=== PATIENT | male | born 1985 | race Caucasian/White ===

== ENCOUNTER → 2018-07-05 | Outpatient (CLI) | payer BC ==
--- NOTE | 2018-07-05 23:53 | CT ---
EXAMINATION TYPE: CT abdomen pelvis wo con DATE OF EXAM: 07/05/2018 HISTORY: c/o right flank pain X [address] DLP: 1148 mGycm. Automated Exposure Control for Dose Reduction was Utilized. TECHNIQUE: CT scan of the abdomen and pelvis is performed without oral or IV contrast. COMPARISON: CT abdomen and pelvis November 15, 2009. FINDINGS: Within the limitations of a non-contrast study, the following observations are made. LUNG BASES: No significant abnormality is appreciated. LIVER/GB: Cholecystectomy clips are redemonstrated. PANCREAS: No significant abnormality is seen. SPLEEN: There is 1.0 cm splenule in splenic hilum axial image 32 redemonstrated. ADRENALS: No significant abnormality is seen. KIDNEYS: No definitive left-sided renal calculi or hydronephrosis. There is 2 mm calculus right kidne y mid to lower pole level axial image 58. No hydronephrosis or obstructing ureteral calculi are seen. No intraluminal calculi are seen in poorly distended bladder. BOWEL: Evaluation of bowel is slightly suboptimal secondary to lack of enteric contrast. Stomach is p oorly distended and thus suboptimally evaluated. 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 Terminal ileum is dilated up to 3.4 cm wi th moderate to severe wall thickening. Appendix is seen from base of cecum. It is thickened up to 13 mm. There are central densities or appendicoliths. No significant surrounding inflammatory change is seen. There is mild wall thickening in the left colon which is poorly distended. Mild wall thickening of sigmoid colon is also present. GENITAL ORGANS: Prostate gland is slightly bulky but felt within normal limits in size slightly bulgi ng on bladder base. LYMPH NODES: No greater than 1cm abdominal or pelvic lymph nodes are appreciated. OSSEOUS STRUCTURES: No significant abnormality is seen. OTHER: No significant additional abnormality is seen. IMPRESSION: 1. There is 2 mm nonobstructing right calculus. No hydronephrosis or obstructing ureteral calculi are identified bilaterally. 2. Abnormally dilated appendix with appendicoliths, no significant surrounding inflammatory change to suggest acute appendicitis. It however cannot be excluded if suspected based on above. 3. Suspicious appearance to terminal ileum with dilatation and severe wall thickening, areas of mild colitis cannot be excluded though this is more likely product of poor distention. Differential includ es infectious and inflammatory etiologies including Crohn's disease.
== END | disposition home or self-care (01) ==
LOC: RADCTMAIN 18:07
PROVIDERS: ATTEND Internal Medicine
DX: N20.0 Calculus of kidney (principal); K38.1 Appendicular concretions; K63.89 Other specified diseases of intestine
CPT/HCPCS: 74176

== ENCOUNTER → 2021-06-18 | Outpatient (CLI) | payer BC ==
--- NOTE | 2021-06-18 07:55 | MR ---
EXAMINATION TYPE: MR lumbar spine wo con DATE OF EXAM: 06/18/2021 COMPARISON: 07/05/2018 HISTORY: Back pain TECHNIQUE: Multiplanar, multisequence images of the lumbar spine were acquired. L1-L2: Normal disc appearance without desiccation. No herniation, protrusion or disc bulging. No ca nal stenosis is present. Foramina are patent bilaterally. L2-L3: Normal disc appearance without desiccation. No herniation, protrusion or disc bulging. No ca nal stenosis is present. Foramina are patent bilaterally. L3-L4: Normal disc appearance without desiccation. No herniation, protrusion or disc bulging. No ca nal stenosis is present. Foramina are patent bilaterally. L4-L5: There is a central/left paracentral disc protrusion with moderate central canal stenosis and d isc abutting the traversing left L5 nerve root. L5-S1: There is a central disc protrusion with annular tear with mild impingement upon the thecal sac . Lumbar segments are intact. No paraspinal masses are identified. Conus medullaris has a normal appe arance. IMPRESSION: L4-L5: There is a central/left paracentral disc protrusion with moderate central canal stenosis and d isc abutting the traversing left L5 nerve root. L5-S1: There is a central disc protrusion with annular tear with mild impingement upon the thecal sac .
== END | disposition home or self-care (01) ==
LOC: RADMRIMAIN 06:02
PROVIDERS: ATTEND Internal Medicine
DX: M48.061 Spinal stenosis, lumbar region without neurogenic claudication (principal); M51.27 Other intervertebral disc displacement, lumbosacral region
CPT/HCPCS: 72148